=== PATIENT | male | born 1995 | race Caucasian/White ===

== ENCOUNTER 2017-02-28 19:57 | Emergency (ER) | payer BC ==
[2017-02-28 20:01] VITALS: BP 157/91; BMI 21.4
--- NOTE | 2017-02-28 20:33 | DR.EARACHE ---
HPI - Time Seen Time seen: 20:30 - PCP Primary Care Physician: JARED LEPE - Complaint/Symptoms Chief Complaint Doctor Comments: Patient states that a bug in his right ear canal onset last night. Chief Complaint:: BUG IN RIGHT EAR FOR COUPLE DAYS NOW, JUST GETTING WORSE - Source History Provided: Patient - Mode of arrival Mode of Arrival: Ambulatory - Timing Onset of Chief Complaint: 02/27/17 PMH - PMH Past Medical History: No Past Surgical History: No - Family History History of Family Medical Conditions: No - Social History Type of Tobacco Use: Cigarettes Alcohol Use: None Do you use any recreational Drugs:: No Lives With: Family Lives Where: Home - infectious screening Have you traveled outside the country in the last 6 months?: No Isolation: Standard ROS - Review of Systems Constitutional: No Symptoms Reported, Diaphoresis ENTM: Ear Foreign Body (bug) Respiratoy: No Symptoms Reported Cardiovascular: No Symptoms Reported Gastrointestinal/Abdominal: No Symptoms Reported Genitourinary: No Symptoms Reported Neurological: No Symptoms Reported Musculoskeletal: No Symptoms Reported Integumentary: No Symptoms Reported Hematologic/Lymphatic: No Symptoms Reported Endocrine: No Symptoms Reported Psychiatric: No Symptoms Reported All Other Systems: Reviewed and Negative PE - Vitals Vitals: Temperature 98.3 F Pulse Rate 70 Respiratory Rate 16 Blood Pressure 157/91 O2 Sat by Pulse Oximetry 99 - General Limitations: No Limitations General Appearance: Alert, In No Apparent Distress - Head Head Exam: Normal Inspection, Atraumatic - Eyes Eye exam: Normal Appearance, PERRL, EOMI - ENT ENT Exam: Other (Right distal canal a FB seen c/w a bug) External Ear Exam: Normal External Inspection TM/Canal Exam: Bilateral Normal Nose Exam: Normal Nose Exam Nasal Speculum Exam: Bilateral Normal Mouth Exam: Normal Inspection Teeth Exam: Normal Inspection Throat Exam: Normal Inspection - Neck Neck Exam Focused: Normal Inspection - Chest Chest Inspection: Normal Inspection - Respiratory Respiratory Exam: Normal Lung Sounds Bilat Respiratory Exam: Bilateral Clear to Auscultation - Cardiovascular Cardiovascular Exam: Regular Rate, Normal Rhythm - Abdominal Exam Abdominal Exam: Normal Inspection Abdominal Tenderness: negative: RUQ, RLQ, LUQ, LLQ, Epigastrium, Suprapubic, Diffuse, Mild, Moderate, Severe, Other - Extremities Extremities Exam: Normal Inspection - Back Back Exam: Normal Inspection - Neurological Neurological Exam: Alert, Oriented X3, CN II-XII Intact - Psychiatric Psychiatric Exam: Normal Affect, Normal Mood - Skin Skin Exam: Warm, Dry, Intact Course - Treatment Treatment: Foreign body (bug) removes from external auditory canal with irrigation - Reevaluation 1st: Improved - Diagnosis Discharge Problem: Ear foreign body Qualifiers: Encounter type: initial encounter Laterality: right Qualified Code(s): T16.1XXA - Foreign body in right ear, initial encounter - Discharge Plan Condition: Stable - Follow ups/Referrals Follow ups/Referrals: JARED LEPE [Primary Care Provider] - 3 days - Instructions
== END 2017-02-28 20:58 | disposition home or self-care (01) ==
LOC: ER 20:10
PROC: 09C3XZZ Extirpation of Matter from Right External Auditory Canal, External Approach (ICD-10-PCS; principal; 2017-02-28)
DX: T16.1XXA Foreign body in right ear, initial encounter (principal)
CPT/HCPCS: 10120; 99282